=== PATIENT | female | born 1950 | race Native Hawaiian/Other Pacific Islander ===

== ENCOUNTER → 2017-01-03 | Outpatient (CLI) | payer OTHER ==
--- NOTE | 2017-01-03 14:06 | RADRPT ---
EXAM DATE/TIME: 01/03/2017 13:25 [place] COMPARISON: No previous studies available for comparison. INDICATIONS : Chronic right shoulder pain. No known injury. MEDICAL HISTORY : None. SURGICAL HISTORY : None. ENCOUNTER: Initial ACUITY: >1 year PAIN SCORE: 8/10 LOCATION: Right posterior shoulder FINDINGS: Multiple view examination of the right shoulder demonstrates no evidence of fracture or dislocation. The glenohumeral and acromioclavicular joints are maintained. There is normal range of motion betwe en internal and external rotation. Bony mineralization is normal. CONCLUSION: Unremarkable examination of the right shoulder. Blayne Call MD on January 03, 2017 at 14:03 Board Certified Radiologist. This report was verified electronically.
== END ==
LOC: HRAD 12:47
DX: M25.511 Pain in right shoulder (principal)
CPT/HCPCS: 73030

== ENCOUNTER → 2017-03-20 | Outpatient (CLI) | payer OTHER ==
[~2017-03-20] VITALS: Ht 157.5 cm; Wt 53.4 kg
[~2017-03-20] MED LIST: ACET500T13 PO; CHLORHEXIDINE GLUCONATE 2 % 1 PACK (2 CLOTHS) TOPICAL PRN; GLIP5TAB8 PO; INSULIN HUMAN REGULAR 1,000 UNITS/10 ML VIAL SQ PRN; LACTATED RINGER'S 1000 ML IV PRN; METF500T PO; METOPROLOL TARTRATE 25 MG TAB PO PRN; OMEP10CA PO; POVIDONE IODINE 5% (ANTISEPSIS KIT) 4 APPLICATIONS EACH NARE PRN; PROPOFOL 200 MG/20 ML AMP IV ONE; SIMV20TA PO; SODIUM CHLORID 0.9% 500 ML IV PRN
--- NOTE | 2017-03-20 13:21 | GIPROC ---
[facility] [address] [facility]. [facility], [address] EGD PROCEDURE REPORT EXAM DATE: 03/20/2017 PATIENT NAME: Vernon Davison MR #: [id number] BIRTHDATE: 1950 ATTENDING: Jeyson Church MD ORDER #: [id number] SOFTWARE ENGINEER ADVISOR: Pacheco Williamson and Kamilla Vital STATUS: outpatient INDICATIONS: The patient is a 66 yr old female here for an EGD due to dysphagia for solids at the level of the upper esophageal sphincter. PROCEDURE PERFORMED: EGD w/ dilation of esophagus via guidewire MEDICATIONS: Per Anesthesia. TOPICAL ANESTHETIC: None CONSENT: The patient understands the risks and benefits of the procedure and understands that these risks include, but are not limited to: sedation, allergic reaction, infection, perforation and/or bleeding. Alternative means of evaluation and treatment include, among others: physical exam, x-rays, and/or surgical intervention. The patient elects to proceed with this endoscopic procedure. medical equipment was checked for proper function. Hand hygiene and appropriate measures for infection prevention was taken. After the risks, benefits and alternatives of the procedure were thoroughly explained, Informed consent was verified, confirmed and timeout was successfully executed by the treatment team. The patient was anesthetized with topical anesthesia and the Pentax [id number] endoscope was introduced through the mouth and advanced to the second portion of the duodenum. Retroflexion was performed The gastroscope was then slowly withdrawn and removed. The esophagus, stomach and duodenum appeared normal. Over a guidewire, a 16mm Savary dilator was passed with mild resistance met at the level of the upper esophageal sphincter. Next, a 17mm dilator was passed with moderate resistance met. ADVERSE EVENTS: There were no complications. IMPRESSIONS: Cricopharyngeal achalasia RECOMMENDATIONS: Avoid cold fluid/foods and drink warm liquid, especially before and with pills and meals. PATIENT CONDITION: stable DISPOSITION: Will proceed with colonoscopy REPEAT EXAM: as needed. Jeyson Church MD eSigned: Jeyson Church MD 03/20/2017 1:21 PM cc: Arnel
--- NOTE | 2017-03-20 13:28 | GIPROC ---
[facility] [address] [facility]. [facility], [address] COLONOSCOPY PROCEDURE REPORT EXAM DATE: 03/20/2017 PATIENT NAME: Vernon Davison MR #: [id number] BIRTHDATE: 1950 ENDOSCOPIST: Jeyson Church MD ORDER #: [id number] RESIDENTIAL LIVING ASSISTANT: Pacheco Williamson and Kamilla Vital STATUS: outpatient INDICATIONS: The patient is a 66 yr old female here for a colonoscopy due to screening; average risk PROCEDURE PERFORMED: Colonoscopy with biopsy/polypectomies MEDICATIONS: Per Anesthesia. PREP QUALITY: good ESTIMATED BLOOD LOSS: None CONSENT: The patient understands the risks and benefits of the procedure and understands that these risks include, but are not limited to: sedation, allergic reaction, infection, perforation and/or bleeding. Alternative means of evaluation and treatment include, among others: physical exam, x-rays, and/or surgical intervention. The patient elects to proceed with this endoscopic procedure. medical equipment was checked for proper function. Hand hygiene and appropriate measures for infection prevention was taken. After the risks, benefits and alternatives of the procedure were thoroughly explained, Informed consent was verified, confirmed and timeout was successfully executed by the treatment team. A digital exam was performed The Pentax [id number] endoscope was introduced through the anus and advanced to the cecum, which was identified by both the appendix and ileocecal valve. The instrument was then slowly withdrawn as the colon was fully examined. Small worm-like parasites were noted in the cecum and ascending colon; several were collected for identification. A 2mm ascending colon polyp was removed with biopsy forceps. Two small, sessile, distal rectal polyps were removed with snare cautery. Retroflexion was performed The scope was then completely withdrawn from the patient and the procedure terminated. ADVERSE EVENTS: There were no complications. IMPRESSIONS: Proximal colon parasited; three polyps, removed RECOMMENDATIONS: 1. Await biopsy results. Biopsy results will not be ready for 7-10 days. If you don't hear from us in two weeks, call our office for results. 2. Return office visit in 1-2 weeks. RECALL: Jeyson Church MD eSigned: Jeyson Church MD 03/20/2017 1:28 PM cc: Arnel PATIENT NAME: Vernon Davison MR#: [id number]
[2017-03-20 13:50] VITALS: BP 111/65; PULSE 61; RESP 16; TEMP 97; O2SAT 98
--- NOTE | 2017-03-20 21:04 | EKG ---
Date Performed: 03/20/2017 Time Performed: 10:35:16 PTAGE: 66 years EKG: Sinus rhythm LOW QRS VOLTAGE IN PRECORDIAL LEADS BORDERLINE ECG NO PREVIOUS TRACING DOCTOR: Medina Martinez Interpretating Date/Time 03/20/2017 21:03:43
== END ==
LOC: HSDC 10:02
DX: Z12.11 Encounter for screening for malignant neoplasm of colon (principal); B79 Trichuriasis; K62.1 Rectal polyp; K22.2 Esophageal obstruction; K22.0 Achalasia of cardia; R13.10 Dysphagia, unspecified; Z01.810 Encounter for preprocedural cardiovascular examination
CPT/HCPCS: 00810; 43248; 45380; 88305; 93005; C1769; J7120